=== PATIENT | male | born 1970 | race Caucasian/White ===

== ENCOUNTER 2016-07-20 19:05 | Inpatient (IN) | payer OTHER ==
[~2016-07-20] VITALS: Ht 172.7 cm; Wt 83.5 kg
[~2016-07-20 19:05] MED LIST: ADVIL,NUPRIN,M200 MG PO; ATORVASTATIN CA10 MG PO; B-1100 MG PO; BRINTELLIX10 MG PO; BUSPAR10 MG PO; DIVALPROEX SOD250 M1 PO; ESCITALOPRAM OX10 MG PO; ESCITALOPRAM OX20 MG PO; FENOFIBRATE160 M1 PO; FENOFIBRATE50 MG PO; FENOFIBRATE54 M1 PO; FENUGREEK500 MG PO; FLUOXETINE HCL20 MG PO; FOLIC ACID1 MG PO; GABAPENTIN300 MG PO; LEXAPRO20 MG PO; LIBRIUM10 MG PO; LIBRIUM25 MG PO; NALTREXONE HCL50 MG PO; NEURONTIN300 MG PO; NEURONTIN600 MG PO; OMEPRAZOLE20 MG PO; PRILOSEC20 MG PO; PRILOSEC40 MG PO; SUPER B COMP1 TABLET PO; THIAMINE HCL100 MG PO; TOPAMAX50 MG PO; TOPIRAMATE25 MG PO; ULTRAM50 MG PO; VENLAFAXINE H37.5 M3 PO; VITAMIN B-1100 MG PO
[2016-07-20 20:58] LABS: HEMATOCRIT 40.3 % (38.0-50.0); MCH 30.2 PG (29.0-34.0); MCHC 34.7 G/DL (30.0-36.0); MEAN PLAT.VOLUME 8.6 uM^3 (9.0-12.4); PLATELET COUNT 396 K/uL (156-360); RBC DIS.WIDTH-CV 12.2 % (11.8-14.6); RED BLOOD COUNT 4.63 M/uL (4.00-5.50); WHITE BLOOD COUNT 3.3 K/uL (4.1-10.2)
[2016-07-20 21:09] LABS: CHLORIDE 104 mEq/L (99-109); POTASSIUM 3.9 mEq/L (3.7-5.4); SODIUM 143 mEq/L (136-147)
[2016-07-20 21:11] LABS: GLUCOSE 113 mg/dL (70-99)
[2016-07-20 21:12] LABS: ANION GAP 14 MEQ/L (2-14)
[2016-07-20 21:14] LABS: SERUM ETHYL ALCOHOL 310 mg/dL
[2016-07-20 21:15] LABS: GFR ESTIMATE (CALCULATED) > 59 mL/min/
[2016-07-20 21:16] LABS: UREA NITROGEN (BUN) 10 mg/dL (9-23)
[2016-07-20 23:52] LABS: AMPHETAMINE NEGATIVE (500 ng/mL); BARBITURATES NEGATIVE (200 ng/mL); BENZODIAZEPINES NEGATIVE (150 ng/mL); COCAINE NEGATIVE (150 ng/mL); METHADONE NEGATIVE (200 ng/mL); METHAMPHETAMINE NEGATIVE (500 ng/mL); OPIATES (MORPHINE) NEGATIVE (100 ng/mL); PHENCYCLIDINE NEGATIVE (25 ng/mL); THC CANNABINOIDS NEGATIVE (50 ng/mL); TRICYCLIC ANTIDEPRESSANTS NEGATIVE (300 ng/mL)
[2016-07-20 23:53] LABS: INTERNAL CONTROLS VALID? YES; OXYCODONE NEGATIVE (100 ng/mL); PROPOXYPHENE NEGATIVE (300 ng/mL)
[2016-07-21 00:38] LABS: POINT-OF-CARE METER ID UU13113702
[2016-07-21 00:39] LABS: SALICYLATE < 5.0 MG/DL (15-30)
[2016-07-21 00:40] LABS: LIPASE 43 U/L (1.0-51.0)
[2016-07-21] MEDS ORDERED: BUSPAR10 MG PO (08:30)
[2016-07-21 12:55] LABS: D-DIMER ELISA 0.44 mg/L FEU (< 0.57)
[2016-07-22 07:56] VITALS: BP 162/82
[2016-07-22 10:25] LABS: ALKALINE PHOSPHATASE 72 IU/L (3-129); DIRECT BILIRUBIN 0.1 mg/dL (0.0-0.3); TOTAL BILIRUBIN 0.8 MG/DL (0.0-1.0)
[2016-07-22 13:07] VITALS: BP 148/90
[2016-07-22 15:53] VITALS: BP 112/60
[2016-07-23 08:13] VITALS: BP 153/81
[2016-07-23 15:43] VITALS: BP 139/79
[2016-07-24 07:53] VITALS: BP 136/84
[2016-07-24] MEDS ORDERED: VENLAFAXINE HCL75 M3 PO (10:31)
== END 2016-07-24 12:34 | disposition home or self-care (01) | DRG 885 ==
LOC: EME 19:05 → 1WEST 07-21 13:18 → EDOF 07-21 13:18 → 1WEST 07-21 19:57
PROVIDERS: Emergency Medicine; Psychiatry & Neurology Psychiatry
DX: F33.9 Major depressive disorder, recurrent, unspecified (principal); R45.851 Suicidal ideations; F10.229 Alcohol dependence with intoxication, unspecified; Y90.8 Blood alcohol level of 240 mg/100 ml or more; K21.9 Gastro-esophageal reflux disease without esophagitis; E78.5 Hyperlipidemia, unspecified; R56.9 Unspecified convulsions
CPT/HCPCS: 80048; 80076; 82948; 83690; 84443; 85027; 85379; 90839; 93005; 97150 GO; 97165 GO; 99281; 99285; G0480; J2060; J2405; J7030

== ENCOUNTER 2016-08-02 15:19 | Emergency (ER) | payer BC ==
[~2016-08-02] VITALS: Ht 170.2 cm; Wt 87.3 kg
[~2016-08-02 15:19] MED LIST changes: +VENLAFAXINE HCL75 M3 PO
[2016-08-02 16:14] LABS: EOSINOPHIL (%) 1.9 % (0-5); EOSINOPHIL COUNT 0.1 K/uL (0-0.3); HEMATOCRIT 40.6 % (38.0-50.0); IMMATURE GRANULOCYTE (%) 0.3 % (0.0-0.7); INSTRUMENT ABS NEUTROPHIL CT 4.9 K/uL; LYMPHOCYTE COUNT 1.4 K/uL (1.0-2.8); MCH 30.7 PG (29.0-34.0); MCHC 33.7 G/DL (30.0-36.0); MEAN PLAT.VOLUME 8.7 uM^3 (9.0-12.4); MONOCYTE (%) 6.1 % (3-12); MONOCYTE COUNT 0.4 K/uL (0-0.8); NEUTROPHIL (%) 70.5 % (45-76); NEUTROPHIL COUNT 4.9 K/uL (1.8-6.4); PLATELET COUNT 406 K/uL (156-360); RBC DIS.WIDTH-CV 13.1 % (11.8-14.6); RBC DIS.WIDTH-SD 43.5 % (39-53); RED BLOOD COUNT 4.46 M/uL (4.00-5.50)
[2016-08-02 16:16] LABS: WHITE BLOOD COUNT 6.9 K/uL (4.1-10.2)
[2016-08-02 16:21] LABS: CHLORIDE 106 mEq/L (99-109); POTASSIUM 4.1 mEq/L (3.7-5.4); SODIUM 145 mEq/L (136-147)
[2016-08-02 16:22] LABS: MAGNESIUM 2.4 mg/dL (1.3-2.7)
[2016-08-02 16:24] LABS: GLUCOSE 107 mg/dL (70-99)
[2016-08-02 16:25] LABS: ANION GAP 14 MEQ/L (2-14)
[2016-08-02 16:26] LABS: TOTAL BILIRUBIN 0.2 mg/dL (0.0-1.0)
[2016-08-02 16:27] LABS: ALKALINE PHOSPHATASE 64 IU/L (3-129); SERUM ETHYL ALCOHOL 282 mg/dL
[2016-08-02 16:28] LABS: GFR ESTIMATE (CALCULATED) > 59 mL/min/
[2016-08-02 16:29] LABS: UREA NITROGEN (BUN) 12 mg/dL (9-23)
[2016-08-03 01:31] VITALS: BP 136/74
== END 2016-08-03 01:41 | disposition home or self-care (01) ==
LOC: EME 15:19
PROVIDERS: Emergency Medicine
DX: F10.20 Alcohol dependence, uncomplicated (principal); F33.1 Major depressive disorder, recurrent, moderate; R45.851 Suicidal ideations; Z04.6 Encounter for general psychiatric examination, requested by authority; Y90.8 Blood alcohol level of 240 mg/100 ml or more; E78.5 Hyperlipidemia, unspecified; Z88.8 Allergy status to other drugs, medicaments and biological substances; Z87.891 Personal history of nicotine dependence
CPT/HCPCS: 80053; 83735; 85025; 90837; 99281; 99285; G0480

== ENCOUNTER 2016-08-07 11:34 | Inpatient (IN) | payer BC ==
[~2016-08-07] VITALS: Ht 170.2 cm; Wt 86.6 kg
[2016-08-07 13:46] LABS: HEMATOCRIT 43.4 % (38.0-50.0); MCH 30.6 PG (29.0-34.0); MCHC 33.6 G/DL (30.0-36.0); MEAN PLAT.VOLUME 8.7 uM^3 (9.0-12.4); PLATELET COUNT 444 K/uL (156-360); RBC DIS.WIDTH-CV 12.9 % (11.8-14.6); RED BLOOD COUNT 4.77 M/uL (4.00-5.50); WHITE BLOOD COUNT 8.4 K/uL (4.1-10.2)
[2016-08-07 13:56] LABS: CHLORIDE 107 mEq/L (99-109); POTASSIUM 3.7 mEq/L (3.7-5.4); SODIUM 145 mEq/L (136-147)
[2016-08-07 13:58] LABS: GLUCOSE 76 mg/dL (70-99)
[2016-08-07 13:59] LABS: ANION GAP 21 MEQ/L (2-14)
[2016-08-07 14:01] LABS: SERUM ETHYL ALCOHOL 406 mg/dL
[2016-08-07 14:02] LABS: ALKALINE PHOSPHATASE 73 IU/L (3-129); GFR ESTIMATE (CALCULATED) > 59 mL/min/
[2016-08-07 14:03] LABS: UREA NITROGEN (BUN) 15 mg/dL (9-23)
[2016-08-07 14:11] LABS: TOTAL BILIRUBIN 0.3 mg/dL (0.0-1.0)
[2016-08-07 20:04] LABS: ADD MIUA? YES; BILIRUBIN NEGATIVE; BLOOD NEGATIVE; COLOR YELLOW ((YELLOW)); GLUCOSE (STRIP) NEGATIVE; KETONES 5; LEUKOCYTES NEGATIVE; NITRITE NEGATIVE; PROTEIN (STRIP) NEGATIVE; SPECIFIC GRAVITY 1.014 (1.000-1.030); UROBILINOGEN 0.2 MG/DL (0.2-1.0)
[2016-08-07 20:40] LABS: BACTERIA NONE SEEN /HPF; EPITHELIAL CELLS RARE /HPF; MUCUS 1+ /LPF; RED BLOOD CELLS 0-5 /HPF (0-5); UCUL ADDED? NO
[2016-08-07 20:45] LABS: ADD MEDTOX COMMENT Y; AMPHETAMINE NEGATIVE (500 ng/mL); BARBITURATES NEGATIVE (200 ng/mL); BENZODIAZEPINES PRESUMPTIVE POSITIVE (150 ng/mL); COCAINE NEGATIVE (150 ng/mL); INTERNAL CONTROLS VALID? YES; METHADONE NEGATIVE (200 ng/mL); METHAMPHETAMINE NEGATIVE (500 ng/mL); OPIATES (MORPHINE) NEGATIVE (100 ng/mL); OXYCODONE NEGATIVE (100 ng/mL); PHENCYCLIDINE NEGATIVE (25 ng/mL); PROPOXYPHENE NEGATIVE (300 ng/mL); THC CANNABINOIDS NEGATIVE (50 ng/mL); TRICYCLIC ANTIDEPRESSANTS NEGATIVE (300 ng/mL)
[2016-08-07 21:34] LABS: BENZODIAZEPINES, URINE SCREEN POSITIVE (200 ng/mL)
[2016-08-07] MEDS ORDERED: B COMPLETE1 EACH PO (23:02)
[2016-08-07] MEDS ORDERED: VISINE A.C300 DROP/1 BOTH EYES (23:03)
[2016-08-08 01:12] VITALS: BP 120/78
[2016-08-08 03:35] VITALS: BP 138/82
[2016-08-08 04:06] VITALS: BP 107/57
[2016-08-08 05:48] LABS: MCH 30.2 PG (29.0-34.0); MCHC 33.2 G/DL (30.0-36.0); MCV 90.9 FL (86-99); MEAN PLAT.VOLUME 8.9 uM^3 (9.0-12.4); PLATELET COUNT 341 K/uL (156-360); RBC DIS.WIDTH-CV 12.9 % (11.8-14.6); RBC DIS.WIDTH-SD 42.9 % (39-53)
[2016-08-08 05:49] LABS: RED BLOOD COUNT 3.74 M/uL (4.00-5.50)
[2016-08-08 06:03] LABS: ALKALINE PHOSPHATASE 56 IU/L (3-129); ANION GAP 13 MEQ/L (2-14); CHLORIDE 103 MEQ/L (99-109); GFR ESTIMATE (CALCULATED) > 59 mL/min/; POTASSIUM 3.7 MEQ/L (3.7-5.4); SAMPLE HEMOLYSIS CHECK 0; SAMPLE ICTERIC CHECK 0; SAMPLE LIPEMIA CHECK 0; TOTAL BILIRUBIN 0.3 MG/DL (0.0-1.0); UREA NITROGEN (BUN) 19 mg/dL (9-23)
[2016-08-08 06:06] LABS: GLUCOSE 139 mg/dL (70-99); SODIUM 137 MEQ/L (136-147)
[2016-08-08 06:54] LABS: METH RESISTANT S AUREUS PCR POSITIVE (NEGATIVE)
[2016-08-08 07:07] LABS: PROBE CHECK PASS
[2016-08-08 08:00] VITALS: BP 131/71
[2016-08-08 19:41] VITALS: BP 143/80
[2016-08-08 23:06] VITALS: BP 133/63
[2016-08-09 02:55] VITALS: BP 131/74
[2016-08-09 03:16] VITALS: BP 139/73
[2016-08-09 05:59] LABS: EOSINOPHIL (%) 4.3 % (0-5); EOSINOPHIL COUNT 0.2 K/uL (0-0.3); HEMATOCRIT 31.2 % (38.0-50.0); IMMATURE GRANULOCYTE (%) 0.3 % (0.0-0.7); INSTRUMENT ABS NEUTROPHIL CT 2.1 K/uL; LYMPHOCYTE COUNT 1.2 K/uL (1.0-2.8); MCH 30.6 PG (29.0-34.0); MCV 90.2 FL (86-99); MEAN PLAT.VOLUME 8.9 uM^3 (9.0-12.4); MONOCYTE (%) 12.7 % (3-12); MONOCYTE COUNT 0.5 K/uL (0-0.8); NEUTROPHIL (%) 53.1 % (45-76); NEUTROPHIL COUNT 2.1 K/uL (1.8-6.4); PLATELET COUNT 276 K/uL (156-360); RBC DIS.WIDTH-CV 12.7 % (11.8-14.6); RBC DIS.WIDTH-SD 41.7 % (39-53); RED BLOOD COUNT 3.46 M/uL (4.00-5.50)
[2016-08-09 06:01] LABS: ANION GAP 7 MEQ/L (2-14); CHLORIDE 105 MEQ/L (99-109); GFR ESTIMATE (CALCULATED) > 59 mL/min/; GLUCOSE 107 mg/dL (70-99); MAGNESIUM 2.2 mg/dl (1.3-2.7); POTASSIUM 3.6 MEQ/L (3.7-5.4); SAMPLE HEMOLYSIS CHECK 0; SAMPLE ICTERIC CHECK 0; SAMPLE LIPEMIA CHECK 0; SODIUM 140 MEQ/L (136-147); UREA NITROGEN (BUN) 9 mg/dL (9-23)
[2016-08-09 08:00] VITALS: BP 122/72
[2016-08-09 12:00] VITALS: BP 127/74
[2016-08-09 16:28] VITALS: BP 1126/76
[2016-08-09 20:16] VITALS: BP 116/64
[2016-08-10 03:10] VITALS: BP 123/70
[2016-08-10 05:00] LABS: HEMATOCRIT 34.4 % (38.0-50.0); MCH 30.4 PG (29.0-34.0); MCHC 33.1 G/DL (30.0-36.0); MCV 91.7 FL (86-99); MEAN PLAT.VOLUME 9.4 uM^3 (9.0-12.4); PLATELET COUNT 289 K/uL (156-360); RBC DIS.WIDTH-CV 12.5 % (11.8-14.6); RBC DIS.WIDTH-SD 41.9 % (39-53); RED BLOOD COUNT 3.75 M/uL (4.00-5.50); WHITE BLOOD COUNT 3.5 K/uL (4.1-10.2)
[2016-08-10 05:07] LABS: CHLORIDE 107 mEq/L (99-109); SODIUM 140 mEq/L (136-147)
[2016-08-10 05:08] LABS: MAGNESIUM 2.4 mg/dL (1.3-2.7)
[2016-08-10 05:10] LABS: GLUCOSE 113 mg/dL (70-99)
[2016-08-10 05:11] LABS: ANION GAP 7 MEQ/L (2-14)
[2016-08-10 05:13] LABS: ALKALINE PHOSPHATASE 50 IU/L (3-129)
[2016-08-10 05:14] LABS: GFR ESTIMATE (CALCULATED) > 59 mL/min/
[2016-08-10 05:15] LABS: TOTAL BILIRUBIN 0.4 mg/dL (0.0-1.0); UREA NITROGEN (BUN) 9 mg/dL (9-23)
[2016-08-10 07:03] VITALS: BP 119/63
[2016-08-10 11:02] VITALS: BP 116/70
[2016-08-10 16:00] VITALS: BP 139/79
[2016-08-10 19:27] VITALS: BP 117/65
[2016-08-10 23:48] VITALS: BP 130/76
[2016-08-11 04:02] VITALS: BP 112/59
[2016-08-11 07:52] VITALS: BP 98/56
[2016-08-11 12:01] VITALS: BP 98/72
[2016-08-11 16:00] VITALS: BP 112/80
[2016-08-11 20:43] VITALS: BP 123/77
[2016-08-12 00:44] VITALS: BP 97/55
[2016-08-12 04:33] VITALS: BP 114/75
[2016-08-12 07:57] VITALS: BP 113/60
[2016-08-12] MEDS ORDERED: Thiamine,Vitamin B1 PO (09:07)
[2016-08-12] MEDS ORDERED: FOLIC ACID1 MG PO (09:07)
[2016-08-12] MEDS ORDERED: LAMICTAL25 MG PO (09:13)
[2016-08-12 15:32] VITALS: BP 102/66
== END 2016-08-12 18:04 | disposition home or self-care (01) | DRG 897 ==
LOC: EME 11:34 → 3EAST 23:04 → EDOF 23:04 → 3EAST 08-08 00:53
PROVIDERS: Emergency Medicine; Internal Medicine
PROC: HZ2ZZZZ Detoxification Services for Substance Abuse Treatment (ICD-10-PCS; principal; 2016-08-07)
DX: F10.221 Alcohol dependence with intoxication delirium (principal); R45.851 Suicidal ideations; F33.9 Major depressive disorder, recurrent, unspecified; Z81.3 Family history of other psychoactive substance abuse and dependence; Y90.8 Blood alcohol level of 240 mg/100 ml or more; K29.20 Alcoholic gastritis without bleeding; F10.231 Alcohol dependence with withdrawal delirium; I10 Essential (primary) hypertension; G40.909 Epilepsy, unspecified, not intractable, without status epilepticus; K21.9 Gastro-esophageal reflux disease without esophagitis; E78.00 Pure hypercholesterolemia, unspecified; E78.5 Hyperlipidemia, unspecified; Z56.0 Unemployment, unspecified; Z81.1 Family history of alcohol abuse and dependence
CPT/HCPCS: 71020; 80048; 80053; 80164; 81003; 83735; 84999; 85025; 85027; 87641; 99281; 99285; G0480; J1644; J2060; J3411; J3475; J7030

== ENCOUNTER 2016-08-22 22:12 | Emergency (ER) | payer BC ==
[~2016-08-22] VITALS: Ht 177.8 cm; Wt 84.9 kg
[~2016-08-22 22:12] MED LIST changes: +B COMPLETE1 EACH PO; +LAMICTAL25 MG PO; +Thiamine,Vitamin B1 PO; +VISINE A.C300 DROP/1 BOTH EYES
[2016-08-22 23:24] LABS: EOSINOPHIL (%) 0.8 % (0-5); EOSINOPHIL COUNT 0.1 K/uL (0-0.3); IMMATURE GRANULOCYTE (%) 0.8 % (0.0-0.7); IMMATURE GRANULOCYTE COUNT 0.1 K/uL; INSTRUMENT ABS NEUTROPHIL CT 4.2 K/uL; LYMPHOCYTE COUNT 1.7 K/uL (1.0-2.8); MCH 30.4 PG (29.0-34.0); MCHC 33.2 G/DL (30.0-36.0); MCV 91.7 FL (86-99); MEAN PLAT.VOLUME 9.1 uM^3 (9.0-12.4); MONOCYTE (%) 4.3 % (3-12); MONOCYTE COUNT 0.3 K/uL (0-0.8); NEUTROPHIL (%) 66.2 % (45-76); NEUTROPHIL COUNT 4.2 K/uL (1.8-6.4); RBC DIS.WIDTH-CV 13.6 % (11.8-14.6); RBC DIS.WIDTH-SD 46.2 % (39-53)
[2016-08-22 23:27] LABS: PLATELET COUNT 428 K/uL (156-360); WHITE BLOOD COUNT 6.4 K/uL (4.1-10.2)
[2016-08-22 23:30] LABS: CHLORIDE 107 mEq/L (99-109); POTASSIUM 3.6 mEq/L (3.7-5.4); SODIUM 147 mEq/L (136-147)
[2016-08-22 23:32] LABS: GLUCOSE 98 mg/dL (70-99)
[2016-08-22 23:33] LABS: ANION GAP 16 MEQ/L (2-14)
[2016-08-22 23:34] LABS: TOTAL BILIRUBIN 0.2 mg/dL (0.0-1.0)
[2016-08-22 23:35] LABS: SERUM ETHYL ALCOHOL 397 mg/dL
[2016-08-22 23:36] LABS: ALKALINE PHOSPHATASE 67 IU/L (3-129); GFR ESTIMATE (CALCULATED) > 59 mL/min/
[2016-08-22 23:37] LABS: UREA NITROGEN (BUN) 10 mg/dL (9-23)
[2016-08-22 23:39] LABS: CREATINE KINASE 712 IU/L (1-294); LIPASE 13 U/L (1.0-51.0); TOTAL CK 712 IU/L (1-294)
[2016-08-22 23:51] LABS: CK-MB 11.3 ng/mL (0.0-4.9)
[2016-08-23] MEDS ORDERED: AUGMENTIN875 MG PO (08:22)
[2016-08-23 13:52] VITALS: BP 103/69
== END 2016-08-23 13:54 | disposition home or self-care (01) ==
LOC: EME → EDBD 22:12 → EME 08-23 13:54
PROVIDERS: Emergency Medicine
DX: F10.129 Alcohol abuse with intoxication, unspecified (principal); R11.2 Nausea with vomiting, unspecified; E78.5 Hyperlipidemia, unspecified; K21.9 Gastro-esophageal reflux disease without esophagitis; Y90.8 Blood alcohol level of 240 mg/100 ml or more; Z88.6 Allergy status to analgesic agent
CPT/HCPCS: 71010; 80053; 82550; 82553; 83690; 85025; 99281; 99285; G0480; J2060; J2405; J2543; J2765; J7030

== ENCOUNTER 2016-09-03 13:32 | Emergency (ER) | payer OTHER ==
[~2016-09-03] VITALS: Ht 172.7 cm; Wt 83.0 kg
[~2016-09-03 13:32] MED LIST changes: +AUGMENTIN875 MG PO
[2016-09-03] MEDS ORDERED: OMEPRAZOLE40 M1 PO (13:52)
[2016-09-03] MEDS ORDERED: NALTREXONE HCL50 MG PO (13:52)
[2016-09-03] MEDS ORDERED: TEGRETOL200 MG PO (13:53)
[2016-09-03] MEDS ORDERED: CLONIDINE HCL0.1 MG PO (13:53)
[2016-09-03] MEDS ORDERED: EFFEXOR75 MG PO (13:54)
[2016-09-03 15:14] LABS: HEMATOCRIT 40.2 % (38.0-50.0); MCHC 33.6 G/DL (30.0-36.0); MCV 92.2 FL (86-99); RBC DIS.WIDTH-CV 12.9 % (11.8-14.6); RBC DIS.WIDTH-SD 43.4 % (39-53); RED BLOOD COUNT 4.36 M/uL (4.00-5.50); WHITE BLOOD COUNT 4.9 K/uL (4.1-10.2)
[2016-09-03 15:39] LABS: CHLORIDE 105 mEq/L (99-109); POTASSIUM 3.7 mEq/L (3.7-5.4); SODIUM 140 mEq/L (136-147)
[2016-09-03 15:40] LABS: GLUCOSE 100 mg/dL (70-99)
[2016-09-03 15:42] LABS: ANION GAP 12 MEQ/L (2-14)
[2016-09-03 15:44] LABS: GFR ESTIMATE (CALCULATED) > 59 mL/min/
[2016-09-03 15:44] LABS: ADD MIUA? NO; BILIRUBIN NEGATIVE; BLOOD NEGATIVE; COLOR YELLOW ((YELLOW)); GLUCOSE (STRIP) NEGATIVE; KETONES NEGATIVE; LEUKOCYTES NEGATIVE; NITRITE NEGATIVE; PROTEIN (STRIP) NEGATIVE; SPECIFIC GRAVITY 1.003 (1.000-1.030); UCUL ADDED? NO; UROBILINOGEN 0.2 MG/DL (0.2-1.0)
[2016-09-03 15:45] LABS: UREA NITROGEN (BUN) 13 mg/dL (9-23)
[2016-09-03 15:49] LABS: TROP-I INTERPRETATION NEGATIVE; TROPONIN-I < 0.01 ng/mL (0.0-0.30)
[2016-09-03 16:48] LABS: MEAN PLAT.VOLUME 9.2 uM^3 (9.0-12.4); PLAT.SUFFICIENCY ADEQUATE
[2016-09-03 17:06] LABS: PLATELET COUNT 249 K/uL (156-360)
[2016-09-03 20:34] VITALS: BP 113/79
== END 2016-09-03 20:37 | disposition home or self-care (01) ==
LOC: EME 13:32
PROVIDERS: Emergency Medicine
PROC: 5A2204Z Restoration of Cardiac Rhythm, Single (ICD-10-PCS; principal; 2016-09-03)
DX: I48.91 Unspecified atrial fibrillation (principal); I95.89 Other hypotension; E78.5 Hyperlipidemia, unspecified; Z88.6 Allergy status to analgesic agent; Z87.891 Personal history of nicotine dependence
CPT/HCPCS: 71020; 80048; 80156; 81003; 84443; 84484; 85027; 85379; 93005; 99281; 99285; J3475; J7030